=== PATIENT | female | born 1945 | race Caucasian/White ===

== ENCOUNTER 2022-02-19 09:42 | Emergency (ER) | payer MEDICARE, SELFPAY ==
[2022-02-19 09:53] VITALS: BP 98/50; PULSE 93; RESP 16; TEMP 37.8; O2SAT 99
--- NOTE | 2022-02-19 10:32 | ED.URI ---
HPI - URI/Sore Throat General Chief Complaint: Upper Respiratory Infection Stated Complaint: uri Time Seen by Provider: 02/19/22 10:32 Source: patient, RN notes reviewed and old records reviewed Mode of arrival: ambulatory Limitations: no limitations History of Present Illness HPI Narrative: 77-year-old female visiting from [place] presents to [facility] care with complaints of testing positive for COVID-19 1 day ago with symptoms starting on . Patient reports cough, nasal congestion, sore throat which has resolved,headache some fever with chills and body aches. Patient states no shortness of breath with activity or rest, does have nonproductive dry cough.Patient has been COVID vaccinated but no flu shot. MD elicited complaint: other (COVID-19) Pertinent past history: asthma Onset (ago): day(s) (2) Treatments prior to arrival: acetaminophen Related Data Home Medications Medication Instructions Recorded Confirmed atorvastatin 40 mg tablet mg 02/19/22 bupropion HCl 150 mg 24 hr tablet, mg PO 02/19/22 extended release empagliflozin 25 mg tablet mg 02/19/22 (Jardiance) sertraline 100 mg tablet mg 02/19/22 Allergies Allergy/AdvReac Type Severity Reaction Status Date / Time No Known Allergies Allergy Verified 02/19/22 10:46 Review of Systems Review of Systems: CONSTITUTIONAL: Positive fever, chills, or sweats. EYES: Denies visual changes, redness, or discharge. ENT: Positive rhinorrhea, congestion, sore throat, no otalgia. CARDIOVASCULAR: Denies chest pain, palpitations, or edema. RESPIRATORY: Positive cough denies dyspnea. GASTROINTESTINAL: Denies abdominal pain, nausea, vomiting, or diarrhea. GENITOURINARY: Denies dysuria or hematuria. SKIN: Denies rash or itching. MUSCULOSKELETAL: Denies back pain, joint pain, body aches NEUROLOGIC: Denies headache, numbness, or weakness. PSYCHIATRIC: Positive history of anxiety or depression. All systems reviewed & are unremarkable except as noted in HPI and below [facility] Past Medical History Medical History (Updated 02/21/22 @ 13:52 by Angela Ruiz NP) Anxiety and depression Asthma Diabetes Elevated cholesterol Social History Social History (Updated 02/21/22 @ 13:50 by Angela Ruiz NP) Smoking status: Never smoker Alcohol intake: current Alcohol use details: rare social Substance use: never Occupation/Education: retired Gender identity (if verbalized by the patient): Female Comments At time of signature, agree with nursing past medical, surgical, social and family history. There is no relevant family history pertinent to the presenting complaint Exam Narrative: GENERAL: Well-appearing, well-nourished, and in no acute distress. HEAD: Normocephalic, atraumatic. EYES: PERRLA and EOMI. ENT: Nares with minimal redness clear rhinorrhea no epistaxis. Mucous membranes moist.TM's normal with good light reflex, throat with mild redness, no lesions no exudates, no tonsil enlargement NECK: Supple.no lymphadenopathy CHEST: Clear to auscultation. No respiratory distress.SAO2 99% on room air, no tachypnea or wheezing noted HEART: Regular rate and rhythm. No murmur heard. Normal peripheral pulses. ABDOMEN: Soft, nontender, nondistended, normal active bowel sounds. EXTREMITIES: Normal range of motion. No edema. SKIN: Warm, dry, no rash. NEURO: No focal deficits. Alert and oriented x3. Course Course Level of Care: Express Care Visit Vital Signs Vital signs: Vital Signs Temperature 37.8 C H 02/19/22 09:53 Pulse Rate 93 02/19/22 09:53 Respiratory Rate 16 02/19/22 09:53 Blood Pressure 98/50 L 02/19/22 09:53 Pulse Oximetry 99 02/19/22 09:53 Oxygen Delivery Room Air 02/19/22 09:53 Temperature 37.8 C H 02/19/22 09:53 Pulse Rate 93 02/19/22 09:53 Respiratory Rate 16 02/19/22 09:53 Blood Pressure 98/50 L 02/19/22 09:53 Pulse Oximetry 99 02/19/22 09:53 Oxygen Delivery Room Air 02/19/22 09:53 MDM -
== END 2022-02-19 11:02 | disposition home or self-care (01) ==
PROVIDERS: Emergency Provider Registered Nurse
DX: U07.1 COVID-19 (principal); J45.909 Unspecified asthma, uncomplicated; E11.9 Type 2 diabetes mellitus without complications; E78.00 Pure hypercholesterolemia, unspecified
CPT/HCPCS: 99203; G0463